=== PATIENT | male | born 1990 | race Caucasian/White ===

== ENCOUNTER 2021-07-25 18:50 | Emergency (ER) | payer OTHER, SELFPAY ==
[2021-07-25 19:06] VITALS: BP 143/87; PULSE 82; RESP 14; TEMP 36.6; O2SAT 100
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
== END 2021-07-25 20:00 | disposition home or self-care (01) ==
PROVIDERS: Emergency Provider Nurse Practitioner; PCP Family Medicine
DX: S86.112A Strain of other muscle(s) and tendon(s) of posterior muscle group at lower leg level, left leg, initial encounter (principal); S20.214A Contusion of middle front wall of thorax, initial encounter; S80.212A Abrasion, left knee, initial encounter; V49.40XA Driver injured in collision with unspecified motor vehicles in traffic accident, initial encounter; J45.909 Unspecified asthma, uncomplicated
CPT/HCPCS: 99203; G0463